=== PATIENT | female | born 1990 | race Caucasian/White ===

== ENCOUNTER 2019-02-11 17:52 | Emergency (ER) | payer SELFPAY ==
[~2019-02-11] VITALS: Ht 160 cm; Wt 59.0 kg
[~2019-02-11 17:52] MED LIST: MEDR5TAB PO; METR500T PO; NORG1TAB14 PO; SULF1TAB35 PO
--- NOTE | 2019-02-11 17:59 | ED Lower Extremity ---
General Stated Complaint: R FOOT 4TH TOE INJ Source: patient Exam Limitations: no limitations History of Present Illness Date Seen by Provider: Feb 11, 2019 Time Seen by Provider: 17:58 Initial Comments to ER with right fourth toe pain after she got up at 4 AM this morning and asked that we stubbed this toe on the edge of her couch Onset: this morning Severity: moderate Pain/Injury Location: right 4th toe, right 5th toe Method of Injury: unknown Allergies and Home Medications Allergies Coded Allergies: guanfacine (Verified Allergy, Unknown, 02/16/14) Home Medications Hydrocodone/Acetaminophen 1 Each Tablet, 1 TAB PO Q4-6HR Prescribed by: MARLYN KYLE on 02/11/19 4658 Patient Home Medication List Home Medication List Reviewed: Yes Review of Systems Constitutional: see HPI EENTM: see HPI Respiratory: no symptoms reported Cardiovascular: no symptoms reported Genitourinary: no symptoms reported Musculoskeletal: see HPI Skin: no symptoms reported Psychiatric/Neurological: No Symptoms Reported Past Xrturny-Qqajez-Hragjm Hx Patient Social History Type Used: Cigarettes Recent Foreign Travel: No Contact w/Someone Who Travel: No Recent Hopitalizations: No Past Medical History Bladder Surgery, Breast Adverse Reaction/Blood Tranf: No Physical Exam Vital Signs Vital Signs - First Documented 02/11/19 17:59 Temp 97.6 Pulse 71 Resp 18 B/P (MAP) 132/86 (101) Pulse Ox 100 O2 Delivery Room Air Capillary Refill : Height, Weight, BMI Height: 5'3" Weight: 130lbs. oz. 58.512183lb; 22.14 BMI Method:Stated General Appearance: WD/WN, no apparent distress Respiratory: no respiratory distress, no accessory muscle use Hips: bilateral hip non-tender, bilateral hip normal inspection, bilateral hip normal range of motion Legs: bilateral leg non-tender, bilateral leg normal inspection, bilateral leg normal range of motion Knees: bilateral knee non-tender, bilateral knee normal inspection, bilateral knee normal range of motion Ankles: bilateral ankle non-tender, bilateral ankle normal inspection, bilateral ankle normal range of motion Feet: right foot ecchymosis (to the dorsal aspect fourth MTP joint right foot. No obvious deformity of the toe. Normal capillary refill and sensation of the toe tip), right foot pain Neurologic/Psychiatric: alert, normal mood/affect, oriented x 3 Skin: normal color, warm/dry, other (he does have a diffuse maculopapular rash to the torso as well as the forearms. Nothing on the palms or soles. She does have a larger patch about 2 x 3 cm on the right flank somewhat scaly. I suspect pityriasis rosea.) Progress/Results/Core Measures Results/Orders My Orders Orders - MARLYN KYLE APRN Foot, Right, 3 View (02/11/19 17:53) Rx-Hydrocodone/Apap 5-325 Mg (Rx-Vicodin (02/11/19 18:15) Vital Signs/I&O 02/11/19 17:59 Temp 97.6 Pulse 71 Resp 18 B/P (MAP) 132/86 (101) Pulse Ox 100 O2 Delivery Room Air Departure Impression Primary Impression: Fracture of toe Qualified Codes: S92.514A - Nondisplaced fracture of proximal phalanx of right lesser toe(s), initial encounter for closed fracture Additional Impression: Pityriasis rosea Disposition: 01 HOME, SELF-CARE Condition: Stable Departure-Patient Inst. Decision time for Depature: 18:07 Referrals: [facility] [place] (PCP/Family) Primary Care Physician Patient Instructions: Pityriasis Rosea, Toe Fracture Add. Discharge Instructions: 1. Keep toe dayanna taped together for the next 3 weeks 2. Walking shoe for 3-4 weeks 3. Pain medication as directed Scripts Hydrocodone/Acetaminophen ([place] 5-325 Tablet) 1 Each Tablet 1 TAB PO Q4-6HR for Pain MDD 10 TABS for 7 Days, #10 TAB Prov: MARLYN KYLE APRN 02/11/19 MARLYN KYLE APRN Feb 11, 2019 17:59
[2019-02-11] MEDS ORDERED: HYDR-4226 PO (18:08)
[2019-02-11] MEDS ORDERED: RX-HYDROCODONE/APAP 5/325 MG #4 TAB PK PO PRN (18:15)
--- NOTE | 2019-02-11 18:19 | Diagnostic Imaging Report ---
INDICATION: Caught right fourth toe from earlier this morning on a couch. Bruising and pain to the metatarsal region. EXAMINATION: Right foot 02/11/2019. FINDINGS: 3 views of the foot demonstrate a fracture along the proximal aspect of the fourth proximal phalanx. This is oblique in nature without significant displacement. There is no definite involvement of the adjacent joint space. Remaining osseous structures are intact. IMPRESSION: 1. Nondisplaced fourth proximal phalanx fracture. Dictated by: Dictated on workstation # [id number]
[2019-02-11 18:27] VITALS: BP 132/86
== END 2019-02-11 18:27 | disposition home or self-care (01) ==
LOC: EDUNIT# 17:52 → ER 17:53
DX: S92.514A Nondisplaced fracture of proximal phalanx of right lesser toe(s), initial encounter for closed fracture (principal); L42 Pityriasis rosea; Z88.8 Allergy status to other drugs, medicaments and biological substances; W22.8XXA Striking against or struck by other objects, initial encounter
CPT/HCPCS: 73630

== ENCOUNTER 2019-10-10 08:54 | Emergency (ER) | payer SELFPAY ==
[~2019-10-10] VITALS: Ht 160 cm; Wt 67.1 kg
[~2019-10-10 08:54] MED LIST changes: +HYDR-4226 PO
--- NOTE | 2019-10-10 09:13 | ED Lower Extremity ---
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 PCP: [facility] Allergies and Home Medications Allergies Coded Allergies: guanfacine (Verified Allergy, Unknown, 02/16/14) Home Medications Hydrocodone/Acetaminophen 1 Each Tablet, 1 TAB PO Q4-6HR Prescribed by: MARLYN KYLE on 02/11/19 3044 Patient Home Medication List Home Medication List Reviewed: Yes Review of Systems Constitutional: no symptoms reported Respiratory: no symptoms reported Cardiovascular: no symptoms reported Gastrointestinal: no symptoms reported Genitourinary: no symptoms reported : No LMP: Oct 09, 2019 Control/STD Prophylaxis: None Musculoskeletal: see HPI Skin: no symptoms reported Psychiatric/Neurological: No Symptoms Reported Past Bjvxlqe-Swzuho-Vlzrpm Hx Past Med/Social Hx: Reviewed and Corrections made Patient Social History Smoking Status: Current Everyday Smoker Type Used: Cigarettes Recent Foreign Travel: No Contact w/Someone Who Travel: No Recent Hopitalizations: No Past Medical History Surgeries: Yes (BREAST REDUCTION; CYSTOCSOPY) Bladder Surgery, Breast Respiratory: No Cardiac: No Neurological: No Female Reproductive Disorders: Denies Genitourinary: Yes (CYSTOSCOPY) Bladder Infection Gastrointestinal: No Musculoskeletal: No Endocrine: No HEENT: No Cancer: No Psychosocial: Yes Sleep Difficulties, Anxiety, Depression Integumentary: No Blood Disorders: No Adverse Reaction/Blood Tranf: No Physical Exam Vital Signs Vital Signs - First Documented 10/10/19 09:13 Temp 36.5 Pulse 90 Resp 16 B/P (MAP) 113/88 (96) Pulse Ox 98 Capillary Refill : Height, Weight, BMI Height: 5'3" Weight: 130lbs. oz. 58.706477xo; 22.14 BMI Method:Stated General Appearance: WD/WN, no apparent distress, other (SMILING, TALKS VERY LOUDLY, WALKS IN ON HER OWN. DOES NOT APPEAR TO BE IN ANY DISCOMFORT OR DISTRESS) Hips: bilateral hip normal inspection Legs: right leg bone tenderness Knees: right knee bone tenderness Ankles: right ankle bone tenderness, right ankle other (TENDERNESS FROM RIGHT KNEE DOWN TO RIGHT ANKLE. NO EXTERNAL EVIDENCE OF TRAUMA, DISTAL MOTOR/SENSORY/VASCULAR INTACT. 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, no motor/sensory deficits, alert, normal mood/affect, oriented x 3 Skin: normal color, warm/dry; No ecchymosis Progress/Results/Core Measures Results/Orders My Orders Orders - KALPANA CHAND DO Tibia/Fibula, Right, 2 Views (10/10/19 09:07) Knee, Right, 3 Views (10/10/19 09:07) Ankle, Right, 3 Views (10/10/19 09:07) Gilberto Bandage (10/10/19 10:51) Steplite (10/10/19 10:51) Vital Signs/I&O 10/10/19 10/10/19 09:13 10:58 Temp 36.5 Pulse 90 80 Resp 16 16 B/P (MAP) 113/88 (96) 114/74 Pulse Ox 98 98 Diagnostic Imaging Comments XRAYS RIGHT KNEE, RIGHT TIB-FIB AND RIGHT ANKLE---NO ACUTE PROCESS, PER RADIOLOGIST REPORT AT 1043 Reviewed: Reviewed by Me Departure Impression Primary Impression: Right ankle sprain Additional Impression: Contusion of right knee and lower leg Disposition: 01 HOME, SELF-CARE Condition: Stable Departure-Patient Inst. Referrals: [facility] (PCP/Family) Primary Care Physician Patient Instructions: Ankle Sprain (DC), Contusion (DC) Add. Discharge Instructions: GILBERTO WRAP AND BOOT NEEDED FOR PAIN ICE TO SORE AREAS AT 20 MINUTE INTERVALS ELEVATE LEG MUCH POSSIBLE TYLENOL AND MOTRIN NEEDED FOR PAIN FOLLOW UP WITH YOUR DR IN 1 WEEK IF NO BETTER All discharge instructions reviewed with patient and/or family. Voiced understanding. Work/School Note: Work Release Form Date Seen in the Emergency Department: Oct 10, 2019 Return to Work: Oct 12, 2019 KALPANA CHAND DO Oct 10, 2019 09:13
--- NOTE | 2019-10-10 10:00 | Diagnostic Imaging Report ---
INDICATION: Fall, complaining of right knee pain. TIME OF EXAM: 9:37 AM. FINDINGS: Three views of the right knee were obtained. The alignment is normal. The joint spaces are well maintained. The articular surfaces are smooth. No fracture, dislocation, or effusion is seen. IMPRESSION: No acute bony abnormality is detected. Dictated by: Dictated on workstation # [id number]
--- NOTE | 2019-10-10 10:01 | Diagnostic Imaging Report ---
INDICATION: Fall with right leg pain. TIME OF EXAMINATION: 9:42 AM. TECHNIQUE: Two views of the right tibia and fibula were obtained. FINDINGS: The alignment at the knee and ankle appears normal. The tibia and fibula appear to be intact. No fractures are seen. IMPRESSION: No acute bony abnormality is detected. Dictated by: Dictated on workstation # [id number]
--- NOTE | 2019-10-10 10:02 | Diagnostic Imaging Report ---
INDICATION: Fall with right ankle pain. TIME OF EXAMINATION: 9:46 AM. TECHNIQUE: Three views of the right ankle were obtained. FINDINGS: The ankle mortise is well maintained. The talar dome is smooth. No fracture or dislocation is seen. There is a tiny osseous density at the tip of the distal fibula, likely an old avulsion. IMPRESSION: No acute bony abnormality is detected. Dictated by: Dictated on workstation # [id number]
[2019-10-10 10:58] VITALS: BP 114/74
== END 2019-10-10 10:57 | disposition home or self-care (01) ==
LOC: EDUNIT# 08:54 → ER 08:55
DX: S93.401A Sprain of unspecified ligament of right ankle, initial encounter (principal); S80.01XA Contusion of right knee, initial encounter; S80.11XA Contusion of right lower leg, initial encounter; F17.210 Nicotine dependence, cigarettes, uncomplicated; Z88.8 Allergy status to other drugs, medicaments and biological substances; W01.0XXA Fall on same level from slipping, tripping and stumbling without subsequent striking against object, initial encounter; X50.1XXA Overexertion from prolonged static or awkward postures, initial encounter; Y92.019 Unspecified place in single-family (private) house as the place of occurrence of the external cause
CPT/HCPCS: 73562; 73590; 73610

== ENCOUNTER 2019-11-07 17:22 | Day surgery (SDC) | payer SELFPAY ==
[2019-11-07] VITALS (7 sets, daily range): BP systolic 120–133; BP diastolic 70–87
[~2019-11-07] VITALS: Ht 162 cm; Wt 63.6 kg
[2019-11-07] MEDS ORDERED: KETOROLAC 30 MG/ML VIAL IVP ONE (17:30)
[2019-11-07] MEDS ORDERED: ONDANSETRON 4 MG/2 ML (SDV) Z0FRAN IVP ONE (17:30)
[2019-11-07] MEDS ORDERED: IOHEXOL 350 MG/ML 100 ML (OMNIPAQUE 350) VIAL IV ONE (17:30)
[2019-11-07] MEDS ORDERED: NS IV 1000 ML 1,000 ML IV SCH (17:30)
[2019-11-07] MEDS ORDERED: NS 100 ML (IVPB) BAG IV ONE (17:30)
[2019-11-07] MEDS ORDERED: HOLD METFORMIN - RECEIVED CONTRAST 20 ML VIAL IV SCH (17:30)
--- NOTE | 2019-11-07 17:30 | ED Abdominal Pain ---
General Stated Complaint: VOMITTING Source of Information: Patient Exam Limitations: No Limitations History of Present Illness Date Seen by Provider: Nov 07, 2019 Time Seen by Provider: 17:29 Initial Comments To ER with vomiting since today as well as right lower quadrant abdominal pain Timing/Duration: 1-2 Days Severity/Quality: Moderate Location: RLQ Radiation: No Radiation Activities at Onset: None Associated Symptoms: Nausea/Vomiting Allergies and Home Medications Allergies Coded Allergies: azithromycin (Verified Allergy, Unknown, 11/07/19) guanfacine (Verified Allergy, Unknown, 02/16/14) Home Medications Hydrocodone/Acetaminophen 1 Each Tablet, 1 TAB PO Q4-6HR Prescribed by: MARLYN KYLE on 02/11/19 1796 Patient Home Medication List Home Medication List Reviewed: Yes Review of Systems Review of Systems Constitutional: see HPI EENTM: No Symptoms Reported Respiratory: No Symptoms Reported Cardiovascular: No Symptoms Reported Gastrointestinal: See HPI, Abdominal Pain, Nausea, Vomiting Genitourinary: No Symptoms Reported Musculoskeletal: no symptoms reported Skin: no symptoms reported Psychiatric/Neurological: No Symptoms Reported Endocrine: No Symptoms Reported Hematologic/Lymphatic: No Symptoms Reported Past Pfdciyh-Aydtsb-Xxvhhd Hx Patient Social History Type Used: Electronic/Vapor Recent Hopitalizations: No Past Medical History Surgeries: Yes (BREAST REDUCTION; CYSTOCSOPY) Bladder Surgery, Breast, Orthopedic Respiratory: No Cardiac: No Neurological: No Female Reproductive Disorders: Denies Genitourinary: Yes (CYSTOSCOPY) Bladder Infection Gastrointestinal: No Musculoskeletal: No Endocrine: No HEENT: No Cancer: No Psychosocial: Yes Sleep Difficulties, Anxiety, Depression Integumentary: No Blood Disorders: No Adverse Reaction/Blood Tranf: No Physical Exam Vital Signs Vital Signs - First Documented 11/07/19 17:25 Temp 37.6 Pulse 71 Resp 22 B/P (MAP) 119/94 (102) Pulse Ox 98 O2 Delivery Room Air Capillary Refill : Height/Weight/BMI Height: 5'3" Weight: 130lbs. oz. 58.924398xp; 26.00 BMI Method:Stated General Appearance: WD/WN, mild distress HEENT: PERRL/EOMI, normal ENT inspection Respiratory: no respiratory distress, no accessory muscle use Cardiovascular: regular rate, rhythm Gastrointestinal: normal bowel sounds, soft, tenderness Extremities: normal range of motion, non-tender Neurologic/Psychiatric: alert, normal mood/affect, oriented x 3 Skin: normal color, warm/dry Progress/Results/Core Measures Results/Orders Lab Results Laboratory Tests Test 11/07/19 17:30 11/07/19 17:40 Range/Units White Blood Count 15.5 H 4.3-11.0 10^3/uL Red Blood Count 4.44 4.35-5.85 10^6/uL Hemoglobin 13.7 11.5-16.0 G/DL Hematocrit 41 35-52 % Mean Corpuscular Volume 91 80-99 FL Mean Corpuscular Hemoglobin 31 25-34 PG Mean Corpuscular Hemoglobin Concent 34 32-36 G/DL Red Cell Distribution Width 13.7 10.0-14.5 % Platelet Count 388 130-400 10^3/uL Mean Platelet Volume 9.5 7.4-10.4 FL Neutrophils (%) (Auto) 84 H 42-75 % Lymphocytes (%) (Auto) 12 12-44 % Monocytes (%) (Auto) 4 0-12 % Eosinophils (%) (Auto) 0 0-10 % Basophils (%) (Auto) 0 0-10 % Neutrophils # (Auto) 13.0 H 1.8-7.8 X 10^3 Lymphocytes # (Auto) 1.9 1.0-4.0 X 10^3 Monocytes # (Auto) 0.6 0.0-1.0 X 10^3 Eosinophils # (Auto) 0.0 0.0-0.3 10^3/uL Basophils # (Auto) 0.0 0.0-0.1 10^3/uL Sodium Level 139 135-145 MMOL/L Potassium Level 3.9 3.6-5.0 MMOL/L Chloride Level 104 98-107 MMOL/L Carbon Dioxide Level 21 21-32 MMOL/L Anion Gap 14 5-14 MMOL/L Blood Urea Nitrogen 5 L 7-18 MG/DL Creatinine 0.81 0.60-1.30 MG/DL Estimat Glomerular Filtration Rate > 60 BUN/Creatinine Ratio 6 Glucose Level 123 H 70-105 MG/DL Calcium Level 9.7 8.5-10.1 MG/DL Corrected Calcium 8.5-10.1 MG/DL Total Bilirubin 0.2 0.1-1.0 MG/DL Aspartate Amino Transf (AST/SGOT) 22 5-34 U/L Alanine Aminotransferase (ALT/SGPT) 15 0-55 U/L Alkaline Phosphatase 80 40-136 U/L Total Protein 8.1 6.4-8.2 GM/DL Albumin 4.8 H 3.2-4.5 GM/DL Serum Test, Qualitative NEGATIVE NEGATIVE Urine Color YELLOW Urine Clarity CLEAR Urine pH 6.0 5-9 Urine Specific Shirley >=1.030 1.016-1.022 Urine Protein TRACE H NEGATIVE Urine Glucose (UA) NEGATIVE NEGATIVE Urine Ketones 1+ H NEGATIVE Urine Nitrite NEGATIVE NEGATIVE Urine Bilirubin NEGATIVE NEGATIVE Urine Urobilinogen 1.0 < = 1.0 MG/DL Urine Leukocyte Esterase NEGATIVE NEGATIVE Urine RBC (Auto) NEGATIVE NEGATIVE Urine RBC 0-2 /HPF Urine WBC 2-5 /HPF Urine Squamous Epithelial Cells >50 H /HPF Urine Renal Epithelial Cells RARE /HPF Urine Crystals NONE /LPF Urine Bacteria MODERATE H /HPF Urine Casts NONE /LPF Urine Mucus LARGE H /LPF Urine Culture Indicated NO Urine Opiates Screen NEGATIVE NEGATIVE Urine Oxycodone Screen NEGATIVE NEGATIVE Urine Methadone Screen NEGATIVE NEGATIVE Urine Propoxyphene Screen NEGATIVE NEGATIVE Urine Barbiturates Screen NEGATIVE NEGATIVE Ur Tricyclic Antidepressants Screen POSITIVE H NEGATIVE Urine Phencyclidine Screen POSITIVE H NEGATIVE Urine Amphetamines Screen NEGATIVE NEGATIVE Urine Methamphetamines Screen NEGATIVE NEGATIVE Urine Benzodiazepines Screen NEGATIVE NEGATIVE Urine Cocaine Screen NEGATIVE NEGATIVE Urine Cannabinoids Screen POSITIVE H NEGATIVE My Orders Orders - MARLYN KYLE [employer]ANK [employer] REPAIRER Cbc With Automated Diff (11/07/19 17:28) Comprehensive Metabolic Panel (11/07/19 17:28) Hcg,Qualitative Serum (11/07/19 17:28) Ed Iv/Invasive Line Start (11/07/19 17:28) Ct Abd/Pelv W (Appendicitis) (11/07/19 17:28) Ns Iv 1000 Ml (Sodium Chloride 0.9%) (11/07/19 17:30) Ondansetron Injection (Zofran Injectio (11/07/19 17:30) Ketorolac Injection (Toradol Injection) (11/07/19 17:30) Ua Culture If Indicated (11/07/19 17:29) Drug Screen Stat (Urine) (11/07/19 17:29) Iohexol Injection (Omnipaque 350 Mg/Ml 1 (11/07/19 17:30) Received Contrast (Hold Metformin- Contr (11/07/19 17:30) Ns (Ivpb) (Sodium Chloride 0.9% Ivpb Bag (11/07/19 17:30) Manual Differential (11/07/19 17:30) Medications Given in ED Current Medications Medications Dose Ordered Sig/Cortney Route Start Time Stop Time Status Last Admin Dose Admin Iohexol 100 ml ONCE ONCE IV 11/07/19 17:30 11/07/19 17:40 DC 11/07/19 18:15 100 ML Ketorolac Tromethamine 15 mg ONCE ONCE IVP 11/07/19 17:30 11/07/19 17:32 DC 11/07/19 17:39 15 MG Ondansetron HCl 8 mg ONCE ONCE IVP 11/07/19 17:30 11/07/19 17:32 DC 11/07/19 17:37 8 MG Sodium Chloride 100 ml ONCE ONCE IV 11/07/19 17:30 11/07/19 17:40 DC 11/07/19 18:15 100 ML Vital Signs/I&O 11/07/19 17:25 Temp 37.6 Pulse 71 Resp 22 B/P (MAP) 119/94 (102) Pulse Ox 98 O2 Delivery Room Air Diagnostic Imaging Diagonstic Imaging: Xray Comments NAME: MILES GARCIA Josiah [facility] REC#: [id number] PT STATUS: REG ER : 1990 PHYSICIAN: MARLYN KYLE APRN ADMIT DATE: 11/07/19/ER Draft Date of Exam:11/07/19 CT ABD/PELV W (APPENDICITIS) PROCEDURE: CT abdomen and pelvis with contrast, rule out appendicitis. TECHNIQUE: Multiple contiguous axial images were obtained through the abdomen and pelvis after the administration of intravenous contrast. All CT scans use one or more of the following dose optimizing techniques: automated exposure control, MA and/or KvP adjustment based on patient size and exam type or iterative reconstruction. INDICATION: Right lower quadrant pain and left lower quadrant pain with nausea and vomiting. FINDINGS: The appendix is distended and fluid-filled, measuring 1.5 cm. This contains an appendicolith. Appendicolith measures almost 1 cm. The stomach and small bowel are not distended. The colon shows normal stool and gas pattern. There are no findings to indicate diverticulitis or colitis. There is no evidence of bowel obstruction. Uterus is not enlarged. There is a 2 cm cyst in the right ovary. There is no free fluid or free air present. The lung bases are clear. The liver appears normal. Gallbladder and bile ducts are normal. The pancreas and spleen are normal. The adrenal glands and kidneys show a small simple cyst on the right, measuring 1 cm and are otherwise normal. There is normal enhancement of the abdominal organs and vessels. IMPRESSION: 1. Distended fluid-filled appendix, measuring 1.5 cm. There is no evidence of appendiceal rupture or abscess. There is an appendicolith. 2. Small simple cyst right kidney. Dictated on workstation # [id number] Dict: 11/07/19 1822 Trans: 11/07/19 1833 [facility] [id number] Interpreted by: PATSY HAJI MD Electronically signed by: Departure Impression Primary Impression: Appendicitis Qualified Codes: K35.30 - Acute appendicitis with localized peritonitis, without perforation or gangrene Disposition: ADMITTED INPATIENT Condition: Stable Departure-Patient Inst. Referrals: [facility] (PCP/Family) Primary Care Physician MARLYN KYLE TANK CAR REPAIRER Nov 07, 2019 17:30
[2019-11-07 17:45] LABS: BASOPHILS % (AUTO) 0 % (0-10); EOSINOPHILS % (AUTO) 0 % (0-10); HEMATOCRIT 41 % (35-52); HEMOGLOBIN 13.7 G/DL (11.5-16.0); LYMPHOCYTES # (AUTO) 1.9 X 10^3 (1.0-4.0); LYMPHOCYTES % (AUTO) 12 % (12-44); MEAN CORPUSCULAR HEMOGLOBIN 31 PG (25-34); MEAN CORPUSCULAR HGB CONC 34 G/DL (32-36); MEAN CORPUSCULAR VOLUME 91 FL (80-99); MEAN PLATELET VOLUME 9.5 FL (7.4-10.4); MONOCYTES # (AUTO) 0.6 X 10^3 (0.0-1.0); MONOCYTES % (AUTO) 4 % (0-12); NEUTROPHILS % (AUTO) 84 % (42-75); PLATELET COUNT 388 10^3/uL (130-400); RED CELL DISTRIBUTION WIDTH 13.7 % (10.0-14.5); WHITE BLOOD COUNT 15.5 10^3/uL (4.3-11.0)
[2019-11-07 17:49] LABS: ALBUMIN 4.8 GM/DL (3.2-4.5); CHLORIDE 104 MMOL/L (98-107); POTASSIUM 3.9 MMOL/L (3.6-5.0); SODIUM 139 MMOL/L (135-145)
[2019-11-07 17:50] LABS: CALCIUM 9.7 MG/DL (8.5-10.1)
[2019-11-07 17:51] LABS: GLUCOSE 123 MG/DL (70-105); TOTAL PROTEIN 8.1 GM/DL (6.4-8.2)
[2019-11-07 17:53] LABS: BILIRUBIN,TOTAL 0.2 MG/DL (0.1-1.0); CARBON DIOXIDE 21 MMOL/L (21-32)
[2019-11-07 17:53] LABS: BILIRUBIN,URINE NEGATIVE (NEGATIVE); CLARITY,URINE CLEAR; COLOR,URINE YELLOW; GLUCOSE, URINE (UA) NEGATIVE (NEGATIVE); KETONES,URINE 1+ (NEGATIVE); LEUKOCYTE ESTERASE ,URINE NEGATIVE (NEGATIVE); NITRITE,URINE NEGATIVE (NEGATIVE); PROTEIN,URINE TRACE (NEGATIVE)
[2019-11-07 17:55] LABS: ALKALINE PHOSPHATASE 80 U/L (40-136); CREATININE SERUM 0.81 MG/DL (0.60-1.30); GFR ESTIMATED > 60
[2019-11-07 17:56] LABS: BUN/CREATININE RATIO 6
[2019-11-07 17:58] LABS: ALANINE AMINOTRANSFERASE 15 U/L (0-55)
[2019-11-07 18:02] LABS: RBC,URINE 0-2 /HPF
[2019-11-07 18:03] LABS: BACTERIA,URINE MODERATE /HPF; RENAL EPITHELIAL CELLS,URINE RARE /HPF
[2019-11-07 18:04] LABS: SQUAMOUS EPITHELIAL CELL,UR >50 /HPF
[2019-11-07 18:17] LABS: AMPHETAMINE SCREEN, URINE NEGATIVE (NEGATIVE); BARBITURATE SCREEN URINE NEGATIVE (NEGATIVE); BENZODIAZEPINES SCREEN URINE NEGATIVE (NEGATIVE); CANNABINOID SCREEN, URINE POSITIVE (NEGATIVE); COCAINE SCREEN URINE NEGATIVE (NEGATIVE); METHADONE STAT NEGATIVE (NEGATIVE); METHAMPHETAMINE SCREEN URINE S NEGATIVE (NEGATIVE); OPIATE SCREEN URINE NEGATIVE (NEGATIVE); OXYCODONE STAT NEGATIVE (NEGATIVE); PROPOXYPHENE STAT NEGATIVE (NEGATIVE); TRICYCLIC ANTIDEPRESSANTS SCRE POSITIVE (NEGATIVE)
--- NOTE | 2019-11-07 18:34 | Diagnostic Imaging Report ---
PROCEDURE: CT abdomen and pelvis with contrast, rule out appendicitis. TECHNIQUE: Multiple contiguous axial images were obtained through the abdomen and pelvis after the administration of intravenous contrast. All CT scans use one or more of the following dose optimizing techniques: automated exposure control, MA and/or KvP adjustment based on patient size and exam type or iterative reconstruction. INDICATION: Right lower quadrant pain and left lower quadrant pain with nausea and vomiting. FINDINGS: The appendix is distended and fluid-filled, measuring 1.5 cm. This contains an appendicolith. Appendicolith measures almost 1 cm. The stomach and small bowel are not distended. The colon shows normal stool and gas pattern. There are no findings to indicate diverticulitis or colitis. There is no evidence of bowel obstruction. Uterus is not enlarged. There is a 2 cm cyst in the right ovary. There is no free fluid or free air present. The lung bases are clear. The liver appears normal. Gallbladder and bile ducts are normal. The pancreas and spleen are normal. The adrenal glands and kidneys show a small simple cyst on the right, measuring 1 cm and are otherwise normal. There is normal enhancement of the abdominal organs and vessels. IMPRESSION: 1. Distended fluid-filled appendix, measuring 1.5 cm. There is no evidence of appendiceal rupture or abscess. There is an appendicolith. 2. Small simple cyst right kidney. Dictated by: Dictated on workstation # [id number]
[2019-11-07] MEDS ORDERED: fentaNYL INJECTION 100 MCG/2 ML AMP IVP ONE (18:45)
[2019-11-07 19:10] LABS: LYMPHOCYTES % (MANUAL) 8 %; MONOCYTES % (MANUAL) 2 %; NEUTROPHILS % (MANUAL) 90 %; RBC MORPH NORMAL
--- NOTE | 2019-11-07 20:05 | NUR ---
Dr. Argueta in the room with the pt.
--- NOTE | 2019-11-07 20:32 | Consultation - Surgery ---
History of Present Illness History of Present Illness Patient Consulted On(jd/time) 11/07/19 20:23 Time Seen by Provider: 19:56 History of Present Illness Surgery asked to consult regarding RLQ pain and elevated WBC. HPI per ED: To ER with vomiting since today as well as right lower quadrant abd ominal pain Timing/Duration: 1-2 Days Severity/Quality: Moderate Location: RLQ Radiation: No Radiation Activities at Onset: None Associated Symptoms: Nausea/Vomiting When I spoke to pt, she states she has never had the pain before and nothing seems to make it better. Allergies and Home Medications Allergies Coded Allergies: azithromycin (Verified Allergy, Unknown, 11/07/19) guanfacine (Verified Allergy, Unknown, 02/16/14) Home Medications Hydrocodone/Acetaminophen 1 Each Tablet, 1 TAB PO Q4-6HR Prescribed by: MARLYN KYLE on 02/11/19 2710 Patient Home Medication List Home Medication List Reviewed: Yes Past Ttwzjuy-Meyeqg-Lwwiyz Hx Patient Social History Alcohol Use: Denies Use Recreational Drug Use: Yes (weed) Smoking Status: Current Everyday Smoker Type Used: Electronic/Vapor 2nd Hand Smoke Exposure: Yes Recent Foreign Travel: No Contact w/Someone Who Travel: No Recent Infectious Disease Expo: No Recent Hopitalizations: No Surgeries History of Surgeries: Yes (BREAST REDUCTION; CYSTOCSOPY) Surgeries: Bladder Surgery, Breast, Orthopedic Respiratory History of Respiratory Disorde: No Cardiovascular History of Cardiac Disorders: No Neurological History of Neurological Disord: No Reproductive System Female Reproductive Disorders: Denies Genitourinary History of Genitourinary Disor: Yes (CYSTOSCOPY) Genitourinary Disorders: Bladder Infection Gastrointestinal History of Gastrointestinal Di: No Musculoskeletal History of Musculoskeletal Dis: No Endocrine History of Endocrine Disorders: No HEENT History of HEENT Disorders: No Cancer History of Cancer: No Psychosocial History of Psychiatric Problem: Yes Behavioral Health Disorders: Sleep Difficulties, Anxiety, Depression Integumentary History of Skin or Integumenta: No Blood Transfusions History of Blood Disorders: No Adverse Reaction to a Blood Tr: No Family Medical History Significant Family History: Cancer (Father) Review of Systems-General Constitutional: malaise, weakness EENTM: No blurred vision, No double vision, No mouth pain, No mouth swelling, No epistaxis Respiratory: No cough, No dyspnea on exertion, No hemoptysis, No short of breath Cardiovascular: No chest pain, No edema, No palpitations Gastrointestinal: abdominal pain (RLQ); No dysphagia, No jaundice; nausea, vomiting Genitourinary: No dysuria, No frequency, No hematuria Musculoskeletal: No joint pain, No joint swelling, No muscle pain, No muscle stiffness Skin: No change in color, No change in hair/nails Psychiatric/Neurological: Anxiety, Emotional Problems; Denies Seizure, Denies Tremors Other HEMATOLOGIC - Pt denies any hx of abnormal bleeding or bruising. Physical Exam-General Problems Physical Exam Vital Signs Vital Signs - First Documented 11/07/19 17:25 Temp 37.6 Pulse 71 Resp 22 B/P (MAP) 119/94 (102) Pulse Ox 98 O2 Delivery Room Air Capillary Refill : Less Than 3 Seconds General Appearance: WD/WN, no apparent distress Eyes: Bilateral Eye PERRL, Bilateral Eye EOMI HEENT: pharynx normal; No scleral icterus (R), No scleral icterus (L); other (moist oral mucosa) Neck: non-tender, full range of motion, supple, normal inspection Respiratory: chest non-tender, lungs clear, normal breath sounds, no respiratory distress, no accessory muscle use Cardiovascular: regular rate, rhythm, no murmur Gastrointestinal: normal bowel sounds, soft, no organomegaly, no pulsatile mass, tenderness (RLQ) Rectal: deferred Back: no CVA tenderness, no vertebral tenderness Extremities: no pedal edema, no calf tenderness, normal capillary refill Neurologic/Psychiatric: operations support representative II-XII nml as tested, no motor/sensory deficits, alert, normal mood/affect, oriented x 3 Skin: normal color, warm/dry Lymphatic: no adenopathy (neck, axilla or groin) Data Review Labs Laboratory Tests 11/07/19 17:30: White Blood Count 15.5H, Red Blood Count 4.44, Hemoglobin 13.7, Hematocrit 41, Mean Corpuscular Volume 91, Mean Corpuscular Hemoglobin 31, Mean Corpuscular Hemoglobin Concent 34, Red Cell Distribution Width 13.7, Platelet Count 388, Mean Platelet Volume 9.5, Neutrophils (%) (Auto) 84H, Lymphocytes (%) (Auto) 12, Monocytes (%) (Auto) 4, Eosinophils (%) (Auto) 0, Basophils (%) (Auto) 0, Neutrophils # (Auto) 13.0H, Lymphocytes # (Auto) 1.9, Monocytes # (Auto) 0.6, Eosinophils # (Auto) 0.0, Basophils # (Auto) 0.0, Neutrophils % (Manual) 90, Lymphocytes % (Manual) 8, Monocytes % (Manual) 2, Blood Morphology Comment NORMAL, Sodium Level 139, Potassium Level 3.9, Chloride Level 104, Carbon Dioxide Level 21, Anion Gap 14, Blood Urea Nitrogen 5L, Creatinine 0.81, Estimat Glomerular Filtration Rate > 60, BUN/Creatinine Ratio 6, Glucose Level 123H, Calcium Level 9.7, Corrected Calcium , Total Bilirubin 0.2, Aspartate Amino Transf (AST/SGOT) 22, Alanine Aminotransferase (ALT/SGPT) 15, Alkaline Phosphatase 80, Total Protein 8.1, Albumin 4.8H, Serum Test, Qualitative NEGATIVE 11/07/19 17:40: Urine Color YELLOW, Urine Clarity CLEAR, Urine pH 6.0, Urine Specific [place] >=1.030, Urine Protein TRACEH, Urine Glucose (UA) NEGATIVE, Urine Ketones 1+H, Urine Nitrite NEGATIVE, Urine Bilirubin NEGATIVE, Urine Urobilinogen 1.0, Urine Leukocyte Esterase NEGATIVE, Urine RBC (Auto) NEGATIVE, Urine RBC 0-2, Urine WBC 2-5, Urine Squamous Epithelial Cells >50H, Urine Renal Epithelial Cells RARE, Urine Crystals NONE, Urine Bacteria MODERATEH, Urine Casts NONE, Urine Mucus LARGEH, Urine Culture Indicated NO, Urine Opiates Screen NEGATIVE, Urine Oxycodone Screen NEGATIVE, Urine Methadone Screen NEGATIVE, Urine Propoxyphene Screen NEGATIVE, Urine Barbiturates Screen NEGATIVE, Ur Tricyclic Antidepressants Screen POSITIVEH, Urine Phencyclidine Screen POSITIVEH, Urine Amphetamines Screen NEGATIVE, Urine Methamphetamines Screen NEGATIVE, Urine Benzodiazepines Screen NEGATIVE, Urine Cocaine Screen NEGATIVE, Urine Cannab inoids Screen POSITIVEH Radiology Date of Exam:11/07/19 CT ABD/PELV W (APPENDICITIS) PROCEDURE: CT abdomen and pelvis with contrast, rule out appendicitis. TECHNIQUE: Multiple contiguous axial images were obtained through the abdomen and pelvis after the administration of intravenous contrast. All CT scans use one or more of the following dose optimizing techniques: automated exposure control, MA and/or KvP adjustment based on patient size and exam type or iterative reconstruction. INDICATION: Right lower quadrant pain and left lower quadrant pain with nausea and vomiting. FINDINGS: The appendix is distended and fluid-filled, measuring 1.5 cm. This contains an appendicolith. Appendicolith measures almost 1 cm. The stomach and small bowel are not distended. The colon shows normal stool and gas pattern. There are no findings to indicate diverticulitis or colitis. There is no evidence of bowel obstruction. Uterus is not enlarged. There is a 2 cm cyst in the right ovary. There is no free fluid or free air present. The lung bases are clear. The liver appears normal. Gallbladder and bile ducts are normal. The pancreas and spleen are normal. The adrenal glands and kidneys show a small simple cyst on the right, measuring 1 cm and are otherwise normal. There is normal enhancement of the abdominal organs and vessels. IMPRESSION: 1. Distended fluid-filled appendix, measuring 1.5 cm. There is no evidence of appendiceal rupture or abscess. There is an appendicolith. 2. Small simple cyst right kidney. Dictated by: Dictated on workstation # [id number] Dict: 11/07/19 182 Trans: 11/07/191852 [facility] [id number] Interpreted by: PATSY HAJI MD Electronically signed by: PATSY HAJI MD 11/07/191852 Assessment/Plan Assessment/Plan Assessment/Plan Acute appendicitis. I reviewed the films myself and went over radiology report; she has a stone in appendix and the appendix itself is very large. No signs of rupture. She needs to go to the OR for Laparoscopic Appendectomy, possible open; consent obtained. Discussed the procedure with her; risks and complications not limited to pain, bleeding, infection, scar, damage to bowel and need for further procedure. All questions answered to her satisfaction and are waiting for OR crew and anesthesia to be free. Will start IV fluids, pain control, IV ABX studio operations engineer in charge to OR, anti-steve tics as needed and NPO. PATSY GIBSON DO Nov 07, 2019 20:32
--- NOTE | 2019-11-07 20:55 | NUR ---
THIS RN RECEIVED REPORT FROM MARANDA REYES. THIS RN TO ASSUME CARE OF PT AT THIS TIME.
--- NOTE | 2019-11-07 21:01 | NUR ---
Report given to MARANDA Castillo, to assume care of pt at this time.
[2019-11-07] MEDS ORDERED: HYDROmorphone 2 MG/ML VIAL (DILAUDID) ONE ×2 (21:24→22:18)
[2019-11-07] MEDS ORDERED: fentaNYL INJECTION 100 MCG/2 ML AMP ONE ×2 (21:24→21:27)
[2019-11-07] MEDS ORDERED: MEPERIDINE (DEMEROL) INJ 50 MG/ML ONE (21:25)
[2019-11-07] MEDS ORDERED: ONDANSETRON 4 MG/2 ML (SDV) Z0FRAN ONE ×2 (21:25→21:27)
[2019-11-07] MEDS ORDERED: DEXAMETHASONE 10 MG/ML (DECADRON) 1 ML VIAL ONE (21:27)
[2019-11-07] MEDS ORDERED: proPOfol 200 MG/20 ML (DIPRIVAN) VIAL IV ONE (21:27)
[2019-11-07] MEDS ORDERED: SUCCINYLCHOLINE INJ 100 MG/5 ML SYR ONE (21:27)
[2019-11-07] MEDS ORDERED: SEVOFLURANE (ULTANE) 15 ML INHAL SOLN ONE (21:27)
[2019-11-07] MEDS ORDERED: ROCURONIUM 10 MG/ML 5 ML SYRINGE IV ONE (21:27)
[2019-11-07] MEDS ORDERED: BUP/EPI 0.5% 1:200,000 (SENSORCAINE) 30 ML VIAL ONE (21:28)
[2019-11-07] MEDS ORDERED: MIDAZOLAM 2 MG/2 ML (VERSED) VIAL ONE (21:28)
[2019-11-07] MEDS ORDERED: ceFAZolin INJECTION 0 MG ONE (21:30)
--- NOTE | 2019-11-07 21:30 | NUR ---
MARANDA QUINTANA FROM OR HERE TO TRANSPORT PT TO OR.
[2019-11-07] MEDS ORDERED: ceFAZolin INJECTION 2,000 MG ONE (22:06)
[2019-11-07] MEDS ORDERED: SUGAMMADEX 500 MG/5 ML VIAL (BRIDION) IV ONE (22:09)
[2019-11-07] MEDS ORDERED: KETOROLAC 30 MG/ML VIAL ONE (22:20)
--- NOTE | 2019-11-07 22:28 | Progress Note-Post Operative ---
Post-Operative Progess Note Surgeon (s)/Event Crew Technician (s) Surgeon PATSY GIBSON DO Event Crew Technician: none Pre-Operative Diagnosis Acute Appy Post-Operative Diagnosis Same Procedure & Operative Findings Date of Procedure 11/07/19 Procedure Performed/Findings PROCEDURE: Laparoscopic appendectomy. COMPLICATIONS: None. INDICATIONS: The patient is a 29 year old female who has been having right lower quadrant abdominal pain. Patient's exam consistent with appendicitis. I discussed risk and benefits of laparoscopic appendectomy and all indicated procedures with the possibility being a normal appendix. The patient understands the risks and benefits and wishes to proceed. Consent was signed on the chart. DESCRIPTION OF PROCEDURE: The patient was taken to the operating suite, prepped and draped in a sterile fashion. Timeout was performed. Local anesthetic was infiltrated just below the umbilicus and 11-blade scalpel was used to make a skin incision. Cautery was used to dissect down to the fascia and scored. Kochers were used to grasp and elevate it and the abdomen was then entered. A 0 Vicryl was placed in a [id number] fashion for closure at the end of the case. The balloon trocar was inserted into the abdomen and pneumoperitoneum was achieved. Under direct visualization of the laparoscope, a 5 mm trocar was placed in the suprapubic region and a 5 mm trocar was placed in the left lower quadrant. Appendix was located, [retrocecal and enlarged, had not perforated]. The base of the appendix was dissected around. Once at the base an Endo-ANGIE 2.5 stapler was then fired across the base of the appendix. The mesoappendix was then divided using Ligasure in a stepwise fashion; clamping, coagulating and then cutting. It was then placed in an Endobag and removed through the 12 mm trocar site. The abdomen was then irrigated and suctioned. No other pathology noted. The abdomen was then desufflated and the trocars were removed. The 0 Vicryl placed at the beginning of the case was then tied closing the 12 mm fascial defect. The skin was then closed using 4-0 Monocryl in simple subcuticular fashion. The abdomen was then washed and dried and Skin Affix was placed over the incisions. The patient tolerated the procedure well without any complications and was taken to the recovery room in stable condition. Anesthesia Type GET Estimated Blood Loss Estimated blood loss (mL): scant Specimens/Packing Specimens Removed PATSY Wolff DO Nov 07, 2019 22:28
[2019-11-07] MEDS ORDERED: HYDR-4226 PO (22:30)
--- NOTE | 2019-11-07 22:31 | Discharge Inst-Surgical ---
Discharge Inst-Surgical Depart Medication/Instructions New, Converted or Re-Newed RX: RX Given to Pt/Family Patient Instructions Follow up Appt: Make appointment for 1 week. [phone] Instructions: No lifting greater than 20 pounds. No strenuous activity. May shower in 24 hours, no tub bath or soaking. Use incentive spirometer at home as directed. No Smoking Skin/Wound Care: May remove bandages in am. You need to leave the Dermabond on incision it will fall off on it's own. Symptoms to Report: Appetite Changes, Extremity Discoloration, Numbness/Tingling, Swelling Increased, Bleeding Excessive, Eyesight Changes, Pain Increased, Urine Color Change, Constipation(Persistent), Fever over 101 degree F, Pain/Pressure in chest, Urinating Difficulty, Cough Up/Vomit Blood, Heart Beat Irreg/Pounding, Pain/Pressure in jaw, Cramps in feet or legs, Lightheadedness, Pain/Pressure in shoulder, Diarrhea(Persistent), Memory Changes Suddenly, Questions/Concerns, Weight gain consecutive days, Dizziness/Fainting, Nausea/Vomiting, Shortness of Breath, Weight gain over 2 pounds If questions or concerns contact your physician Or seek help at emergency department. Activity Activity as Tolerated: Yes Activity Instructions: Avoid Stress to Incision Driving Instructions: No Driving/Refer to Dr. Barkley Discharge Diet: No Restrictions Diet After 24 Hours: Clear Liquid if Nauseous If Any Problems/Questions/Issu: Contact Your Physician, Go to Emergency Room Skin/Wound Care Infection Signs and Symptoms: Increased Redness, Foul Odor of Wound, Increased Drainage, Skin Itchy or Has a Rash, Increased Swelling, Temperature Above 101 F Wound Care Comment: use heating pad to shoulder or neck for pain Bathing Instructions: Shower Stitches/[place]/Dermabond Dis: Dermabond Ice Pack: Ice On and Off Site (as needed at incisions) PATSY GIBSON DO Nov 07, 2019 22:31
[2019-11-07] MEDS ORDERED: LACTATED RINGERS 1,000 ML IV ONE (22:37)
--- NOTE | 2019-11-07 23:30 | NUR ---
PATIENT ARRIVED ON UNIT, NO CURRENT ORDERS AVAILABLE. Addendum: 11/08/19 at 0206 by ARCADIO HENRY RN vital signs at time of arrival T 36.3 P 96 R 20 o2 98% 2L BP 110/70
--- NOTE | 2019-11-08 01:53 | NUR ---
patient discharged to home via private vehicle. patient able to eat with no n/v, urinated with no issues, walked > 100 ft. IV removed from left FA tip intact.
--- NOTE | 2019-11-08 07:22 | Anesthesia-General Post-Op ---
General Patient Condition Mental Status/LOC: Same as Preop Cardiovascular: Satisfactory Nausea/Vomiting: Absent Respiratory: Satisfactory Pain: Controlled Complications: Absent Post Op Complications Complications None Follow Up Care/Instructions Patient Instructions None needed. Anesthesia/Patient Condition Patient Condition Patient is doing well, no complaints, stable vital signs, no apparent adverse anesthesia problems. No complications reported per nursing. HEBER COBURN CRNA Nov 08, 2019 07:22
== END 2019-11-08 01:53 | disposition home or self-care (01) ==
LOC: EDUNIT# 17:22 → ER 17:23 → SDC 19:34
PROVIDERS: ATTEND Surgery
CPT/HCPCS: 36415; 74177; 80053; 80306; 81000; 84703; 85007; 85027

== ENCOUNTER 2021-09-10 09:35 | Emergency (ER) | payer SELFPAY ==
[~2021-09-10] VITALS: Ht 160 cm; Wt 73.0 kg
[~2021-09-10 09:35] MED LIST changes: -SULF1TAB35 PO; +SULF1TAB38 PO
--- NOTE | 2021-09-10 09:58 | ED Chest Pain ---
General Chief Complaint: Chest Wall Stated Complaint: LEFT RIB PAIN/SOA Source: patient Exam Limitations: no limitations History of Present Illness Date Seen by Provider: Sep 10, 2021 Time Seen by Provider: 09:40 Initial Comments Patient is a 31-year-old female who presents to the emergency department today with a chief complaint of left upper quadrant/left lower chest wall pain. Onset about a week and a half ago. Patient states she had "flulike" symptoms a week and a half ago with fever and cough. Fever abated 2 nights ago. she had significant coughing. She states the pain gradually worsened over time. She went to [facility] walk-in on Tuesday and was told she needed "physical therapy". She states the pain has continued to worsen in severity since last night. She is no longer coughing as much but coughing, taking deep breaths and movement really intensify the pain. She has been taking Aleve. Her last dose was in the middle of the night around 2:30 in the morning (one pill). No relief of symptoms. She does not feel short of breath. No problems with bowel or bladder, no bloody stool. No urinary complaints. No current fevers or chills. Last menstrual cycle was a couple of days ago. She is a non-smoker. history of interstital cystitis - no change in urinary function currently. All other review of systems reviewed and negative except as stated. Timing/Duration: 1 week Severity/Quality: severe, sharp Radiation: no radiation Activities at Onset: other (Coughing) Modifying Factors: worse with movement, worse with palpation ASA po SEATING AND MOBILITY TECHNOLOGIST: No NTG SL SEATING AND MOBILITY TECHNOLOGIST: No Associated Symptoms: shortness of breath (Secondary to pain) Allergies and Home Medications Allergies Coded Allergies: azithromycin (Verified Allergy, Unknown, 11/07/19) guanfacine (Verified Allergy, Unknown, 02/16/14) Patient Home Medication List Home Medication List Reviewed: Yes Hydrocodone/Acetaminophen (Hydrocodone/Acetaminophen 5 MG/325 MG TAB) 1 Each Tablet, 1 TAB PO Q4-6HR Prescribed by: PATSY GIBSON on 11/07/192229 Review of Systems Review of Systems Constitutional: see HPI EENTM: No Symptoms Reported Cardiovascular: Chest Pain (Left lower chest, lower rib) Gastrointestinal: No Symptoms Reported Genitourinary: No Symptoms Reported Musculoskeletal: no symptoms reported Skin: no symptoms reported Psychiatric/Neurological: No Symptoms Reported All Other Systems Reviewed Negative Unless Noted: Yes Past Asobssp-Hwzlao-Cbvwwi Hx Past Medical History Surgeries: Yes (BREAST REDUCTION; CYSTOCSOPY) Bladder Surgery, Breast, Orthopedic Respiratory: No Currently Using CPAP: No Currently Using BIPAP: No Cardiac: No Neurological: No Female Reproductive Disorders: Denies Genitourinary: Yes (CYSTOSCOPY) Bladder Infection Gastrointestinal: No Musculoskeletal: No Endocrine: No HEENT: No Cancer: No Psychosocial: Yes Sleep Difficulties, Anxiety, Depression Integumentary: No Blood Disorders: No Adverse Reaction/Blood Tranf: No Family Medical History Cancer Physical Exam Vital Signs Vital Signs - First Documented 09/10/21 09/10/21 09:39 09:56 Temp 36.2 Pulse 106 Resp 18 B/P (MAP) 131/104 (113) Pulse Ox 98 O2 Delivery Room Air Capillary Refill : Height, Weight, BMI Height: 5'3" Weight: 130lbs. oz. 58.124286qy; 24.00 BMI Method:Stated General Appearance: WD/WN, Anxious, Moderate Distress HEENT: PERRL/EOMI Neck: Full Range of Motion, Normal Inspection Respiratory: Lungs Clear, Normal Breath Sounds, No Accessory Muscle Use, No Respiratory Distress, Other (tenderness to the left lower ribs and just inferior to the ribs. no overlying rashes or ecchymoses. no crepitus. Patient seems distractable with exam) Cardiovascular: Regular Rate, Rhythm (100) Gastrointestinal: Soft, Tenderness (LUQ abdomen; no masses) Extremity: Normal Capillary Refill, Normal Inspection, Normal Range of Motion, Non Tender, Other (minimal left CVA tenderness) Neurologic/Psychiatric: Alert, Oriented x3, No Motor/Sensory Deficits, Normal Mood/Affect, Other (anxious) Skin: Normal Color, Warm/Dry Progress/Results/Core Measures Results/Orders My Orders Orders - RADHA POWER MD Chest Pa/Lat (2 View) (09/10/21 09:54) Ketorolac Injection (Toradol Injection) (09/10/21 10:15) Medications Given in ED Current Medications Medications Dose Ordered Sig/Cortney Route Start Time Stop Time Status Last Admin Dose Admin Ketorolac Tromethamine 30 mg ONCE ONCE IM 09/10/21 10:15 09/10/21 10:16 DC 2/10/22 10:22 30 MG Vital Signs/I&O 09/10/21 09/10/21 09:39 09:56 Temp 36.2 Pulse 106 Resp 18 B/P (MAP) 131/104 (113) Pulse Ox 98 O2 Delivery Room Air Progress Progress Note : Time: 10:52 Progress Note Patient reevaluated, she states that she is still having the same amount of pain as she did prior to medications. She is able to talk in complete sentences, she is not dyspneic. She is sitting comfortably on the bedside. Vital signs are stable. She is not hypoxic or hypotensive. She is not febrile here in the department. She does not have an acute abdomen suggesting internal bleeding. She does not appear anemic on physical exam. There is no crepitance under the skin at the area of concern. She does not have visible pneumothorax, infiltrate or effusion on chest x-ray. I have reassured her that supportive care would be the best treatment. I recommended kyqa-cwm-rgzkzrr Salonpas patches, Aleve, 2 pills twice daily with food. Alternating heat and ice. Told her we would give her a work note for today. She verbalized understanding, I have given her good return precautions. All questions are sought and answered. Patient is stable for discharge Diagnostic Imaging Diagonstic Imaging: Xray Plain Films/CT/US/NM/MRI: chest Comments [facility]. [place], [place] NAME: MILES GARCIA MED REC#: [id number] PT STATUS: REG ER : 1990 PHYSICIAN: RADHA POWER MD ADMIT DATE: 09/10/21/ER Signed Date of Exam:09/10/21 CHEST PA/LAT (2 VIEW) INDICATION: Chest pain PA and lateral views of the chest are obtained. Heart size and pulmonary vascularity are within normal limits. There is no pneumothorax or consolidation. No pleural fluid is seen. No acute osseous abnormality is identified. Small metallic object projects over the right mid chest may be artifactual. IMPRESSION: No acute abnormality is identified. Dictated by: Dictated on workstation # [id number] Dict: 09/10/21 1017 Trans: 09/10/21 1022 [facility] [id number] Interpreted by: ANNE DEY MD Electronically signed by: ANNE DEY MD 09/10/21 1022 Departure Impression Primary Impression: Chest wall pain Disposition: 01 HOME, SELF-CARE Condition: Stable Departure-Patient Inst. Decision time for Depature: 10:55 Referrals: [facility] (PCP/Family) Primary Care Physician OLINDA MAGALLON DO Patient Instructions: Pleuritic Chest Pain (DC) Add. Discharge Instructions: Take qjzj-ojq-bqfhmlc Aleve, 2 pills twice daily with food as needed for pain. You can apply qkls-kcp-icbdekk Salonpas patches or heat patches to the area of concern. You can also alternate these with ice patches. Come back to the emergency room if you have worsening pain especially with fever over 101, worsening shortness of breath or any other emergent concerning symptoms. Please follow-up next week with your primary care provider Work/School Note: Work Release Form Date Seen in the Emergency Department: Sep 10, 2021 Return to Work: Sep 11, 2021 Copy Copies To 2: OLINDA MAGALLON KATHRYN M MD Sep 10, 2021 09:58
[2021-09-10] MEDS ORDERED: KETOROLAC 30 MG/ML VIAL IM ONE (10:15)
--- NOTE | 2021-09-10 10:20 | Diagnostic Imaging Report ---
INDICATION: Chest pain PA and lateral views of the chest are obtained. Heart size and pulmonary vascularity are within normal limits. There is no pneumothorax or consolidation. No pleural fluid is seen. No acute osseous abnormality is identified. Small metallic object projects over the right mid chest may be artifactual. IMPRESSION: No acute abnormality is identified. Dictated by: Dictated on workstation # [id number]
[2021-09-10 11:13] VITALS: BP 131/104
== END 2021-09-10 11:13 | disposition home or self-care (01) ==
LOC: EDUNIT# 09:35 → ER 09:38
DX: R07.81 Pleurodynia (principal)
CPT/HCPCS: 71046

== ENCOUNTER 2022-04-08 05:34 | Outpatient (CLI) | payer OTHER ==
[~2022-04-08] VITALS: Ht 160 cm; Wt 80.3 kg
[2022-04-09] MEDS ORDERED: MAGN400C PO (14:53)
[2022-04-09] MEDS ORDERED: NORE-106 PO (14:53)
== END 2022-04-09 14:57 | disposition home or self-care (01) ==
LOC: PREOP 05:34
PROVIDERS: ATTEND Surgery
DX: Z01.818 Encounter for other preprocedural examination (principal)

== ENCOUNTER → 2022-04-09 | Outpatient (CLI) | payer OTHER ==
[~2022-04-09] MED LIST changes: +MAGN400C PO; +NORE-106 PO
--- NOTE | 2022-04-09 10:14 | Diagnostic Imaging Report ---
PROCEDURE: US Gallbladder, 04/09/2022. TECHNIQUE: Multiple real-time grayscale images were obtained over the right upper quadrant in various projections. INDICATION: Epigastric pain FINDINGS: The liver appears unremarkable. No focal lesion is appreciated. There is no intrahepatic or extrahepatic biliary dilatation. Common duct is not well seen, obscured by overlying bowel gas. Gallbladder wall does not appear thickened. There are no stones or sludge. No pericholecystic fluid. Visualized pancreas unremarkable. Visualized aorta and IVC unremarkable. Right kidney 8.9 cm in size. There is no hydronephrosis. There is no ascites. IMPRESSION: 1. Visualized structures unremarkable with no acute abnormality appreciated. Dictated by: Dictated on workstation # [id number]
== END ==
LOC: RAD 10:00
PROVIDERS: ATTEND Surgery
DX: R10.13 Epigastric pain (principal)
CPT/HCPCS: 76705

== ENCOUNTER 2022-04-16 11:17 | Day surgery (SDC) | payer OTHER ==
[~2022-04-16] VITALS: Ht 160 cm; Wt 80.3 kg
[2022-04-16] MEDS ORDERED: HURRICAINE EXT TUBE (BENZOCAINE) XX PRN (11:30)
[2022-04-16 11:40] VITALS: BP 127/85
[2022-04-16] MEDS ORDERED: LACTATED RINGERS 1,000 ML IV STA (11:51)
--- NOTE | 2022-04-16 11:52 | Progress Note-Pre Operative ---
Pre-Operative Progress Note Date of Available H&P: Apr 06, 2022 Date H&P Reviewed: Apr 16, 2022 Time H&P Reviewed: 11:51 History & Physical: H&P Reviewed, Patient Examed, No changes noted Pre-Operative Diagnosis: Epigastric pain, Dysphagia, Hematochezia PATSY GIBSON DO Apr 16, 2022 11:52
[2022-04-16] MEDS ORDERED: MIDAZOLAM 2 MG/2 ML (VERSED) VIAL ONE (12:11)
[2022-04-16] MEDS ORDERED: PROPOFOL INJECTION 50 ML IV ONE ×2 (12:11→12:31)
--- NOTE | 2022-04-16 12:45 | Progress Note-Post Operative ---
Post-Operative Progess Note Surgeon (s)/Cooker Sulfite (s) Surgeon PATSY GIBSON DO Cooker Sulfite: Chavez Cerna, MSIII Pre-Operative Diagnosis Epigastric pain, Dysphagia, Hematochezia Post-Operative Diagnosis Gastritis Hiatal hernia Polyp int hemorrhoids Procedure & Operative Findings Date of Procedure 04/16/22 Procedure Performed/Findings EGD with bx Colonoscopy with hot bx PROCEDURE NOTE: After informed consent was obtained, the patient was brought to the endoscopy suite, placed in bed in left lateral decubitus position. She was administered IV sedation by the ROPE MAKING MACHINE OPERATOR who then monitored vitals the entire time, heart rate, blood pressure and pulse ox and the scope was inserted down the mouth through the esophagus into the stomach. Pushed into the stomach, noted some mild gastritis and pushed past the antrum into the duodenum. Duodenum looked good. Pulled back and did a biopsy of antrum, then retroflexed the scope and took a biopsy of the body of the stomach. Saw a small hiatal hernia, took a picture of this and then pulled the scope into the GE junction, took another picture of the hiatal hernia and then did a biopsy of the GE junction. Pushed the scope back into the stomach, suctioned all the air out of the stomach. At this point pulled the scope up the esophagus and out the mouth. Switched camera, switched gloves, went down below, started the colonoscopy. Pushed all the way into about 120 cm to get all the way to cecum, took a picture of the appendiceal orifice, noted the ileocecal valve and what looked like a polyp right at the opening to the appendix. Elected to do a hot biops of this and then slowly withdrew the scope; insufflating to look circumferentially at the mcgrath starting in the cecum, up the ascending colon to the hepatic flexure, then down the transverse colon, splenic flexure, into the descending colon, down into the sigmoid and finally into the rectum, retroflexed in the rectal vault, saw some minimal internal hemorrhoids and took a picture of them. The patient tolerated the procedure and she recovered in the endoscopy suite. Recommended for repeat colonoscopy in 5 years Anesthesia Type IV sedation by ROPE MAKING MACHINE OPERATOR Estimated Blood Loss Estimated blood loss (mL): scant Specimens/Packing Specimens Removed antral bx body of stomach bx GE jxn bx Appendiceal opening polyp PATSY GIBSON DO Apr 16, 2022 12:45
[2022-04-16 12:46] VITALS: BP 135/80
--- NOTE | 2022-04-16 12:46 | Endoscopy Discharge Instruct ---
Endo Procedure/Findings Findings 1.: Gastritis 2.: Hiatal Hernia 3.: Polyp 4.: Internal Hemorrhoids Discharge Instructions - Activity: You might feel a little sleepy until tomorrow. This is due to the medicine you received to relax you. Until tomorrow, you should: NOT drive a car, operate machinery or power tools. NOT drink any alcoholic beverages. NOT make any important decisions or sign importortant papers. Do not return to work until tomorrow, unless otherwise instructed. Resume previous activities tomorrow. Diet: Start by taking liquids. If you tolerate liquids, advance to solid food. 1.: Colonscopy in 5 years 2.: EGD in 3 years Notify Physician - If you experience excessive bleeding, unusual abdominal pain, fever, or chest pain, contact your doctor immediately. PATSY GIBSON DO Apr 16, 2022 12:46
[2022-04-16 12:50] VITALS: BP 128/76
--- NOTE | 2022-04-16 12:53 | Anesthesia-General Post-Op ---
MAC Patient Condition Mental Status/LOC: Same as Preop Cardiovascular: Satisfactory Nausea/Vomiting: Absent Respiratory: Satisfactory Pain: Controlled Complications: Absent Post Op Complications Complications None Follow Up Care/Instructions Patient Instructions None needed. Anesthesiology Discharge Order Discharge Order Patient is doing well, no complaints, stable vital signs, no apparent adverse anesthesia problems. No complications reported per nursing. TRAM SANTO CRNA Apr 16, 2022 12:53
[2022-04-16 13:15] VITALS: BP 124/72
[2022-04-16 13:22] VITALS: BP 124/72
== END 2022-04-16 13:22 | disposition home or self-care (01) ==
LOC: ENDO 11:17
PROVIDERS: ATTEND Surgery
DX: K63.5 Polyp of colon (principal); F17.290 Nicotine dependence, other tobacco product, uncomplicated; K29.70 Gastritis, unspecified, without bleeding; K44.9 Diaphragmatic hernia without obstruction or gangrene; K64.8 Other hemorrhoids; K92.1 Melena
CPT/HCPCS: 84703